=== PATIENT | male | born 1950 | race Caucasian/White ===

== ENCOUNTER 2020-06-08 12:59 | Outpatient (REF) | payer OTHER, SELFPAY ==
--- NOTE | ~2020-06-08 | CT_ITS ---
EXAMINATION: CT CHEST SCREENING CLINICAL INFORMATION: Nicotine dependence COMPARISON: Previous chest CT scans most recent April 2019 TECHNIQUE: Multidetector volumetric CT imaging of the chest is performed without contrast using low dose technique. Additional 2D coronal and sagittal reformatted images and axial 3D maximum intensity projection (MIP) images are generated on the CT workstation. This CT examination was performed using dose optimization techniques as appropriate, variously including the following: *Automated exposure control *Adjustment of mA and/or kV according to patient size (this includes techniques or standardized protocols for targeted exams where dose is matched to indication/reason for exam; i.e. extremities or head) *Use of iterative reconstruction technique DLP: 52 mGy-cm FINDINGS: LUNGS: There is evidence of mild paraseptal emphysema. There is mild biapical pleural parenchymal scarring. There is small pulmonary nodules that are stable. Largest pulmonary nodule is a 4 mm calcified right lower lobe nodule axial image 365 series 6. No new pulmonary nodule is seen. There is no endobronchial or endotracheal lesion.. MEDIASTINUM: There are small calcified mediastinal and right hilar lymph nodes that are stable. No enlarged lymph nodes are seen. The heart does not appear enlarged. There is a tiny pericardial effusion. There is mild coronary artery calcification. The ascending thoracic aorta is slightly dilated measuring 4.2 cm which is unchanged. PLEURA: There is no pleural effusion. No pleural mass or thickening. AXILLA: No lymphadenopathy. UPPER ABDOMEN: There are calcifications in the spleen. There is a 4 cm left renal cyst. OSSEOUS STRUCTURES: There are degenerative changes of the spine. CT/CT lung screening IMPRESSION: Mild emphysema. Evidence of old granulomatous disease. Coronary artery calcification. Slightly dilated ascending thoracic aorta. ASSESSMENT: Lung-RADS category 2: Benign RECOMMENDATION: Annual low-dose chest CT follow-up recommended.
== END 2020-06-08 13:00 | disposition home or self-care (01) ==
LOC: HO.CT 12:59
PROVIDERS: PCP Internal Medicine Geriatric Medicine; Visit Provider Physician Assistant Medical
DX: Z12.2 Encounter for screening for malignant neoplasm of respiratory organs (principal); F17.210 Nicotine dependence, cigarettes, uncomplicated
CPT/HCPCS: 71271

== ENCOUNTER 2020-07-09 10:33 | Outpatient (REF) | payer OTHER, SELFPAY ==
--- NOTE | ~2020-07-09 | XR_ITS ---
EXAMINATION: XR HAND, RIGHT CLINICAL INFORMATION: Chronic ulcer of skin COMPARISON: None TECHNIQUE: PA, lateral, and oblique views of the right hand. FINDINGS: Bone alignment is normal. No fracture or dislocation is seen. There is mild arthritis at the first SENIOR LIVING joint with joint space narrowing and osteophyte formation. Joint spaces are otherwise normal. Soft tissues are normal. No abnormal air collection or soft tissue foreign body is seen. XR/XR hand RT min 3V IMPRESSION: Mild arthritis at the first SENIOR LIVING joint. No x-ray evidence of osteomyelitis.
== END 2020-07-09 10:34 | disposition home or self-care (01) ==
LOC: HO.XRAY 10:33
PROVIDERS: PCP Internal Medicine Geriatric Medicine; Visit Provider Internal Medicine
DX: L98.492 Non-pressure chronic ulcer of skin of other sites with fat layer exposed (principal)
CPT/HCPCS: 73130

== ENCOUNTER 2020-08-10 12:50 | Outpatient (REF) | payer OTHER, SELFPAY ==
--- NOTE | ~2020-08-10 | CT_ITS ---
EXAMINATION: CT CHEST WITHOUT CONTRAST CLINICAL INFORMATION: Follow-up dilatation of the ascending thoracic aorta COMPARISON: Previous chest CT scans most recent May 2020 TECHNIQUE: Multidetector volumetric CT imaging of the chest was done. Axial MIP volume rendering provided. Sagittal and coronal reformatted images were obtained. This CT examination was performed using dose optimization techniques as appropriate, variously including the following: *Automated exposure control *Adjustment of mA and/or kV according to patient size (this includes techniques or standardized protocols for targeted exams where dose is matched to indication/reason for exam; i.e. extremities or head) *Use of iterative reconstruction technique DLP: 157 mGy-cm FINDINGS: LUNGS: There is evidence of mild paraseptal emphysema. There is biapical pleural and parenchymal scarring. There are small bilateral pulmonary nodules that are stable. The largest is a 4 mm calcified right lower lobe nodule axial image 367 series 5. MEDIASTINUM: The ascending thoracic aorta is slightly dilated measuring 4.2 cm. This is unchanged. Aortic arch is upper normal in size measuring 3.1 cm. Descending thoracic aorta is normal in caliber measuring 2.7 cm.. The heart does not appear enlarged. There is mild coronary artery calcification. There is a tiny pericardial effusion that is stable. There are calcified right subcarinal or hilar lymph nodes suggestive of old granulomatous disease. PLEURA: There is no pleural effusion. No pleural mass or thickening. AXILLA: No lymphadenopathy. UPPER ABDOMEN: There is a 4 cm cyst in the left kidney that is stable. There are calcifications in the spleen likely related to old granulomatous disease. OSSEOUS STRUCTURES: There are degenerative changes of the spine. CT/CT chest wo con IMPRESSION: Stable mild dilatation of the ascending thoracic aorta measuring 4.2 cm. Emphysema. Stable small pulmonary nodules. Evidence of old granulomatous disease. Mild coronary artery calcification.
== END 2020-08-10 12:51 | disposition home or self-care (01) ==
LOC: HO.CT 12:50
PROVIDERS: PCP Internal Medicine Geriatric Medicine; Visit Provider Internal Medicine Cardiovascular Disease
DX: I77.810 Thoracic aortic ectasia (principal)
CPT/HCPCS: 71250

== ENCOUNTER → 2021-01-12 10:39 | Outpatient (BNVA) | payer OTHER, SELFPAY | PROVIDERS: PCP Internal Medicine Geriatric Medicine; Referring Provider Internal Medicine Geriatric Medicine; Visit Provider Surgery | DX: L72.0 Epidermal cyst (principal) | CPT/HCPCS: 99202 ==

== ENCOUNTER 2021-02-02 07:53 | Outpatient (REF) | payer OTHER, SELFPAY ==
[2021-02-02 08:03] VITALS: BP 146/85; PULSE 71; RESP 16; TEMP 36.3; O2SAT 100; BMI 25.5
[2021-02-02 08:23] VITALS: BP 124/77; PULSE 66; RESP 16; O2SAT 99
--- NOTE | 2021-02-02 08:27 | P.OP_ITS ---
Operative Note Operative Note Date of Service: 02/02/21 Narrative: Preop diagnosis: Epidermal cyst, left neck Postop diagnosis: Epidermal cyst, left neck Procedure: Excision of epidermal cyst on the left neck under local anesthesia Surgeon: Agapito Lord MD Patient is a 70-year-old male with note of area of cystic induration on the left neck measuring about 1.5 cm, with recent swelling, and drainage. This seemed to be consistent with a ruptured epidermal cyst. He wanted to proceed with excision. He understood the technique of excision under local anesthesia and he was aware of the risks, benefits, and alternatives. He was brought to the minor procedure room. He was placed supine. His head was turned to the right to expose the cyst on the left neck. This area was prepped and draped. Lidocaine 1% was used for local anesthesia. I made an elliptical incision around the cystic induration using blade 15. This was carried down through the full-thickness of the skin and part of the subcutaneous layer to excise this entire indurated area. This induration was about 1.5 cm in diameter I closed the incision with full-thickness nylon 3-0 interrupted sutures. Dressings were applied. The patient tolerated procedure well. There were no complications. He was giv en wound care instructions. The patient will be seen in the office for removal of sutures in 2 weeks.
== END 2021-02-02 07:54 | disposition home or self-care (01) ==
LOC: HO.MS 07:53
PROVIDERS: PCP Internal Medicine Geriatric Medicine; Visit Provider Surgery
PROC: (CPT 11422; principal; 2021-02-02 08:00)
DX: L72.0 Epidermal cyst (principal); I10 Essential (primary) hypertension; Z79.899 Other long term (current) drug therapy; Z79.84 Long term (current) use of oral hypoglycemic drugs
CPT/HCPCS: 11422; 88304

== ENCOUNTER → 2021-02-14 12:49 | Outpatient (BNVA) | payer OTHER, SELFPAY | PROVIDERS: PCP Internal Medicine Geriatric Medicine; Referring Provider Internal Medicine Geriatric Medicine; Visit Provider Surgery | DX: Z48.817 Encounter for surgical aftercare following surgery on the skin and subcutaneous tissue (principal); Z87.2 Personal history of diseases of the skin and subcutaneous tissue | CPT/HCPCS: 99212 ==

== ENCOUNTER 2022-08-21 15:27 | Outpatient (REF) | payer OTHER, SELFPAY ==
--- NOTE | ~2022-08-21 | CT_ITS ---
EXAMINATION: CT CHEST SCREENING CLINICAL INFORMATION: 50 pack-year history. Quit 1 year ago. COMPARISON: Previous chest CT most recent July 2020 TECHNIQUE: Multidetector volumetric CT imaging of the chest is performed without contrast using low dose technique. Additional 2D coronal and sagittal reformatted images and axial 3D maximum intensity projection (MIP) images are generated on the CT workstation. This CT examination was performed using dose optimization techniques as appropriate, variously including the following: *Automated exposure control *Adjustment of mA and/or kV according to patient size (this includes techniques or standardized protocols for targeted exams where dose is matched to indication/reason for exam; i.e. extremities or head) *Use of iterative reconstruction technique DLP: 48 mGy-cm FINDINGS: LUNGS: Mild biapical pleural and parenchymal scarring. Small pulmonary nodules are stable. Largest is a 4 mm calcified right lower lobe nodule axial image 381 series 5. No new pulmonary nodule. No endobronchial or endotracheal lesion. Small tracheal diverticulum. Mild emphysema. MEDIASTINUM: Slightly dilated ascending thoracic aorta measuring 4.2 x 4.3 cm not appreciably changed. The aortic arch and descending thoracic aorta are upper normal in size. Small calcified mediastinal and right hilar lymph nodes. No enlarged lymph nodes. Normal heart size. Moderate to severe coronary artery calcification. Trace pericardial effusion. CORONARY ARTERY CALCIFICATION: Moderate to severe PLEURA: There is no pleural effusion. No pleural mass or thickening. AXILLA: No lymphadenopathy. UPPER ABDOMEN: Calcifications in the spleen suggestive of old granulomatous disease. Left renal cyst. OSSEOUS STRUCTURES: Degenerative changes. CT/CT lung screening IMPRESSION: Mild emphysema. Stable small pulmonary nodules. Evidence of old granulomatous disease. Slightly dilated ascending thoracic aorta not appreciably changed. Moderate to severe coronary artery calcification. ASSESSMENT: Lung-RADS category 2: Benign RECOMMENDATION: Annual low-dose chest CT follow-up recommended
== END 2022-08-21 15:28 | disposition home or self-care (01) ==
LOC: HO.CT 15:27
PROVIDERS: PCP Internal Medicine Geriatric Medicine; Visit Provider Physician Assistant Medical
DX: Z12.2 Encounter for screening for malignant neoplasm of respiratory organs (principal); Z87.891 Personal history of nicotine dependence
CPT/HCPCS: 71271

== ENCOUNTER 2023-02-20 09:11 | Outpatient (REF) | payer OTHER, SELFPAY | END 2023-02-20 09:12 | disposition home or self-care (01) | LOC: HO.HHCX 09:11 | PROVIDERS: Visit Provider Internal Medicine Geriatric Medicine | DX: Z13.89 Encounter for screening for other disorder (principal) | CPT/HCPCS: 73562 ==

== ENCOUNTER 2023-02-26 10:21 | Outpatient (REF) | payer OTHER, SELFPAY ==
--- NOTE | ~2023-02-26 | XR_ITS ---
EXAMINATION: XR KNEE, RIGHT CLINICAL INFORMATION: Pain. COMPARISON: Radiographs dated 10/03/2009. TECHNIQUE: AP, lateral, tunnel, and sunrise views of the right knee. FINDINGS: Bony alignment and mineralization are normal. There is very mild asymmetric narrowing of the medial joint space compartment. The lateral and patellofemoral joint space compartments are well-maintained. There is peripheral osteophyte formation of the patellofemoral compartment. There is chondrocalcinosis. No fracture, dislocation or right knee joint effusion is seen. An accessory ossification center is again seen of the patella. There are scattered atherosclerotic calcifications. XR/XR knee RT 4V IMPRESSION: 1. No right knee fracture, dislocation or joint effusion is seen. 2. There is mild osteoarthritic change of the medial and patellofemoral joint space compartments of the right knee. 3. There is chondrocalcinosis, which can be associated with CPPD. EXAMINATION: XR KNEE, LEFT CLINICAL INFORMATION: Pain. COMPARISON: Radiographs dated 04/02/2008. TECHNIQUE: AP, lateral, tunnel, and sunrise views of the left knee. FINDINGS: Bony alignment and mineralization are normal. The lateral, medial and patellofemoral joint space compartments are well-maintained. There is chondrocalcinosis. No fracture, dislocation or significant left knee joint effusion is seen. There is no foreign body. There are scattered atherosclerotic calcifications. IMPRESSION: 1. No left knee fracture, dislocation or joint effusion is seen. 2. There is chondrocalcinosis, which can be associated with CPPD.
--- NOTE | ~2023-02-26 | XR_ITS ---
EXAMINATION: XR KNEE, RIGHT CLINICAL INFORMATION: Pain. COMPARISON: Radiographs dated 10/03/2009. TECHNIQUE: AP, lateral, tunnel, and sunrise views of the right knee. FINDINGS: Bony alignment and mineralization are normal. There is very mild asymmetric narrowing of the medial joint space compartment. The lateral and patellofemoral joint space compartments are well-maintained. There is peripheral osteophyte formation of the patellofemoral compartment. There is chondrocalcinosis. No fracture, dislocation or right knee joint effusion is seen. An accessory ossification center is again seen of the patella. There are scattered atherosclerotic calcifications. XR/XR knee LT 4V IMPRESSION: 1. No right knee fracture, dislocation or joint effusion is seen. 2. There is mild osteoarthritic change of the medial and patellofemoral joint space compartments of the right knee. 3. There is chondrocalcinosis, which can be associated with CPPD. EXAMINATION: XR KNEE, LEFT CLINICAL INFORMATION: Pain. COMPARISON: Radiographs dated 04/02/2008. TECHNIQUE: AP, lateral, tunnel, and sunrise views of the left knee. FINDINGS: Bony alignment and mineralization are normal. The lateral, medial and patellofemoral joint space compartments are well-maintained. There is chondrocalcinosis. No fracture, dislocation or significant left knee joint effusion is seen. There is no foreign body. There are scattered atherosclerotic calcifications. IMPRESSION: 1. No left knee fracture, dislocation or joint effusion is seen. 2. There is chondrocalcinosis, which can be associated with CPPD.
== END 2023-02-26 10:22 | disposition home or self-care (01) ==
LOC: HO.XRAY 10:21
PROVIDERS: PCP Internal Medicine Geriatric Medicine; Visit Provider Internal Medicine Geriatric Medicine
DX: M25.561 Pain in right knee (principal); M25.562 Pain in left knee; E11.9 Type 2 diabetes mellitus without complications
CPT/HCPCS: 73564

== ENCOUNTER 2023-11-20 09:30 | Outpatient (REF) | payer OTHER, SELFPAY ==
[2023-11-20 11:19] LABS: MANUAL DIFF FLAG NO
[2023-11-20 11:25] LABS: Basophils Percent Auto 0.5 % (0-2); Eosinophils Absolute Auto 0.1 X10*3/uL (0.0-0.4); Hematocrit 43.9 % (42.0-52.0); Hemoglobin 14.5 g/dl (14.0-18.0); Imm Gran Abs Auto 0.02 X10*3/uL (0.00-0.03); Imm Gran Pct Auto 0.3 % (0.0-0.4); Lymphocytes Absolute Auto 1.8 X10*3/uL (1.2-4.9); Lymphocytes Percent Auto 30.5 % (20-40); Mean Corpuscular Hemoglobin 29.5 pg (27.0-33.0); Mean Corpuscular Volume 89.2 fL (80.0-98.0); Mean Platelet Volume 10.1 fL (9.4-12.4); Monocytes Absolute Auto 0.6 X10*3/uL (0.1-1.2); Monocytes Percent Auto 10.8 % (2-11); Neutrophils Absolute Auto 3.4 x10*3/uL (2.0-8.3); Neutrophils Percent Auto 56.9 % (45-73); Platelet Count 222 X10*3/uL (160-400); Red Blood Count 4.92 X10*6/uL (4.60-5.80); Red Cell Distribution Width 14.2 % (11.0-16.0); White Blood Count 5.9 X10*3/uL (4.8-10.8)
[2023-11-20 11:50] LABS: Alanine Aminotransferase 40 U/L (0-40); Albumin Level 4.2 g/dL (3.5-5.0); Alkaline Phosphatase 56 U/L (39-117); Anion Gap 14 (12-20); Aspartate Amino Transferase 40 U/L (5-37); Blood Urea Nitrogen 11 mg/dL (9-16); Calcium 9.8 mg/dL (8.4-10.2); Carbon Dioxide 25 mmol/L (22-29); Chloride 105 mmol/L (96-108); Cholesterol 172 mg/dL (<200); Estimated Glomerular Filt Rate 59; Glucose Random 111 mg/dL (60-115); HDL Cholesterol 66 mg/dL (>40); LDL Cholesterol Calculated 67 mg/dL (<100); Potassium 4.1 mmol/L (3.3-5.1); Sodium 140 mmol/L (135-145); Total Protein 7.5 g/dL (6.5-8.0); Triglycerides 196 mg/dL (<150)
[2023-11-20 11:59] LABS: Creatinine Urine 125.08 mg/dL; Microalbum/Creatinine Ratio Ur 14.3 ug/mg cr (<30)
== END 2023-11-20 09:31 | disposition home or self-care (01) ==
LOC: HO.HHCL 09:30
PROVIDERS: Visit Provider Internal Medicine Geriatric Medicine
DX: E11.9 Type 2 diabetes mellitus without complications (principal); I51.89 Other ill-defined heart diseases; Z87.891 Personal history of nicotine dependence
CPT/HCPCS: 36415; 80053; 80061; 82043; 82570; 85025

== ENCOUNTER 2024-01-23 08:34 | Outpatient (REF) | payer OTHER, SELFPAY ==
--- NOTE | ~2024-01-23 | CT_ITS ---
EXAMINATION: CT LOW-DOSE SCREENING CHEST WITHOUT CONTRAST CLINICAL INFORMATION: Nicotine dependence, cigarettes, uncomplicated. Former smoker. The patient has a 50 pack-year history of smoking, having quit 2 years ago. COMPARISON: CT chest August 21, 2022. XRT chest May 23, 2014. TECHNIQUE: Multidetector volumetric CT imaging of the chest is performed on a Siemens SOMATOM Definition scanner without contrast using low dose technique. Additional 2D coronal and sagittal reformatted images and axial 3D maximum intensity projection (MIP) images are generated on the CT workstation. This CT examination was performed using dose optimization techniques as appropriate, variously including the following: *Automated exposure control *Adjustment of mA and/or kV according to patient size (this includes techniques or standardized protocols for targeted exams where dose is matched to indication/reason for exam; i.e. extremities or head) *Use of iterative reconstruction technique TOTAL EXAM DLP: 50 mGy-cm. CTDIvol: 1.40 mGy. FINDINGS: PULMONARY NODULES: Some small stable pulmonary nodules are present, the largest a calcified perifissural node in the right lower lobe. LUNGS: Lungs bilaterally symmetrically expanded. Mild emphysema and bronchial thickening present without bronchiectasis. A small tracheal diverticulum is unchanged. No effusion or pneumothorax. Central airways patent. MEDIASTINUM: No mediastinal, hilar or axillary adenopathy or free fluid collection. There are small calcified subcarinal and right hilar lymph nodes. CORONARY ARTERY CALCIFICATION: Present. THYROID GLAND: Unremarkable to the extent seen. CARDIOVASCULAR STRUCTURES: Ascending aorta is unchanged at 4.3 cm maximal transverse dimension in the axial plane. Heart size is normal. Trace anterior pericardial fluid, unchanged. CHEST WALL/AXILLA: Unremarkable. UPPER ABDOMEN: Calcified splenic granulomas are present. There is hepatic steatosis. Included portions of the solid organs in the upper abdomen otherwise unremarkable on noncontrast imaging. OSSEOUS STRUCTURES: No suspicious focal findings. CT/CT lung screening IMPRESSION: No findings seen suspicious for malignancy. ASSESSMENT: 1. Lung-RADS Category 2: Benign appearance or behavior of nodules. N/A 2. Lung-RADS Category S: Negative. There are no clinically significant or potentially clinically significant findings not related to the lungs requiring urgent additional evaluation. RECOMMENDATION: Continued routine annual low-dose CT lung screening in 1 year is recommended. An order for CT CHEST LOW DOSE CANCER SCREENING ([id number]) can be placed. Electronically signed by: Yariel Farmer MD 03/07/2024 08:12 PM RANDI
== END 2024-01-23 08:35 | disposition home or self-care (01) ==
LOC: HO.CT 08:34
PROVIDERS: PCP Internal Medicine Geriatric Medicine; Visit Provider Physician Assistant Medical
DX: Z12.2 Encounter for screening for malignant neoplasm of respiratory organs (principal); F17.210 Nicotine dependence, cigarettes, uncomplicated
CPT/HCPCS: 71271

== ENCOUNTER 2024-08-22 08:33 | Outpatient (REF) | payer OTHER, SELFPAY ==
--- OUTSIDE RECORDS SUMMARY | 2024-08-22 08:47 | XMS_ITS | Clinical Summary ---
Author Organization [facility], Address [address] [place] [address] [place] [address] Phone Care Team Providers Care Cupola Patcher Name Role Phone Name, Galo RIVAS Primary Care Provider [phone] Allergies No known active allergies Medications atorvastatin (LIPITOR) 80 MG tablet Take 80 mg by mouth 1 (one) time each day Active [place]-3 Fatty Acids ([place]-3 Fish Oil) 1000 MG capsule Take 1,000 mg by mouth 1 (one) time each day Active aspirin (ST GERARDO) 81 MG EC tablet Take 81 mg by mouth 1 (one) time each day Active metoprolol succinate XL (TOPROL-XL) 25 MG 24 hr tablet Take 12.5 mg by mouth 1 (one) time each day Do not crush or chew. Active metFORMIN (GLUCOPHAGE) 500 MG tablet Take 250 mg by mouth 2 (two) times a day with meals Active nitroglycerin (NITROSTAT) 0.[address] 0.4 mg under the tongue every 5 (five) minutes if needed for chest pain Active ergocalciferol 1.25 MG (98118 UT) capsule Take 50,000 Units by mouth 1 (one) time per week Active sacubitril-vals sharon (Entresto) 24-26 MG per tablet Take 1 tablet by mouth 2 (two) times a day Active Active Problems Problem Noted Date Diagnosed Date Type 2 diabetes mellitus without complication Heart failure, not otherwise specified 2 Renal disorder due to type 2 diabetes mellitus 0 09/06/2020 Stage 3a chronic kidney disease 08/21/2019 Overview (04/19/2020): Update for Diagnosis Load Essential hypertension 08/21/2019 Resolved Problems Problem Noted Date Diagnosed Date Resolved Date Anemia 08/21/2019 09/06/2020 Family History Relation Status Comments Father Unknown Mother Unknown Social History Tobacco Use Types Packs/Day Years Used Date Smoking Tobacco: Every Day Cigarettes Tobacco Cessation:Ready to Q uit: Not Asked; Counseling Given: Not Answered Alcohol Use Standard Drinks/Week Comments Yes 0 (1 standard drink = 0.6 oz pure alcohol) Alcoholic Drinks/day: Occasional social drink Sex and Gender Information Value Date Recorded Sex Assigned at Not on file Legal Sex Male 4:37 PM EST Gender Identity Not on file Sexual Orientation Not on file Last Filed Vital Signs Vital Sign Reading Time Taken Comments Blood Pressure 122/68 03/06/2022 5:09 PM EST Pulse - - Temperature - - Respiratory Rate - - Oxygen Saturation - - Inhaled Oxygen Concentration - - Weight 76.9 kg (169 lb 9.6 oz) 03/06/2022 5:09 P M EST Height 170.2 cm (5' 7 ) 03/06/2022 5:09 PM EST Body Mass Index 26.56 03/06/2022 5:09 PM EST Plan of Treatment Health Maintenance Due Date Last Done Comments Pneumococcal Vaccine: 50+ Ye ars (1 of 2 - PCV) 10/31/1971 Colorectal Cancer Screening: Annual FOBT 2001 Colorectal Cancer Screening: Colonoscopy 2001 Colorectal Cancer Screening: Sigmoidoscopy 2001 Diabetes: Ophthalmology Exam 09/06/2020 Diabetes: Pedal Pulse Checked 09/06/2020 Diabetes: Sensory Foot Exam 09/06/2020 Diabetes: Visual Foot Exam 09/06/2020 Diabetes: Hemoglobin A1C 12/07/2020 09/06/2020 Influenza Vaccine (Season Ended) 2024 Hepatitis B Vaccine Aged Out No longe r eligible based on patient's age to complete this topic Procedures Procedure Name Priority Date/Time Associated Diagnosis Comments HEMOGLOBIN A1C Routine 09/06/2020 3:11 PM EDT Stage 3a chronic kidney disease (HCC) from Last 3 Months or Most Recently Relevant to Health Maintenance Results * (ABNORMAL) Hemoglobin A1c (09/06/2020 3:11 PM EDT) Hemoglobin A1C 6.7(H) (4.0-5.6) % [facility] Comment: MONITORING: In known diabetic patients, hemoglobin A1c targets should be discussed with health care provider. DIAGNOSTIC USE: ??The [place] Diabetes Association (ADA) and the World Health Organization (WHO) recommend the use of HbA1c to diagnose diabetes using a threshold of 6.5%. Patients who have an HbA1c between 5.7% and 6.4% are considered at increased risk for developing diabetes in the future. CAUTION: Falsely low HbA1c results may be observed in patients with hemolytic anemia, homozygous forms of abnormal hemoglobin (e.g. SS, CC, SC), , recent blood loss or hemoglobin F greater than 7%. Fructosamine may be used as an alternate test in these cases. REFERENCE: ADA: Standards of Medical Care in Diabetes 2020, The Journal of Clinical and Applied Research and Education Volume 43, Supplement 1 Testing performed or reported by [facility], a Service of [facility], [address] [place] [id number] Daron Kilpatrick MD, [employer] Superintendent Blood (Blood, Venous) 09/06/2020 3:11 PM EDT 09/06/2020 3:13 PM EDT us Ld Martin MD LAB BLOOD ORDERABLES Final Resul t [facility] from Last 3 Months or Most Recently Relevant to Health Maintenance Insurance [facility] Care Teams Cupola Patcher Relationship Specialty Start Date End Date Name, MD Galo [address] [place] [id number] PCP - General Internal Medicine 03/03/20
--- OUTSIDE RECORDS SUMMARY | 2024-08-22 08:47 | XMS_ITS | Encounter Summary ---
Author Organization [facility], Address [address] [place] [address] Phone Care Team Providers Care Setter Machine Name Role Phone Name, Galo RIVAS Primary Care Provider [phone] Encounter Details Date Type Department Care Team (Late st Contact Info) Description 10/10/2021 Documentation Only [facility], [address] [place] [address] Ld Martin MD [address] [place] [address] Social History Tobacco Use Types Packs/Day Years Used Date Smoking Tobacco: Every Day Cigarettes Alcohol Use Standard Drinks/Week Comments Yes 0 (1 standard drink = 0.6 oz pure alcohol) Alcoholic Drinks/day: Occasional social drink Sex and Gender Information Value Date Recorded Sex Assigned at Not on file Legal Sex Male 4:37 PM EST Gender Identity Not on file Sexual Orientation Not on file documented as of this encounter Plan of Treatment Not on file documented as of this encounter Visit Diagnoses Not on filedocumented in this encounter Care Teams Setter Machine Relationship Specialty Start Date End Date Name, MD [address] [place] [address] PCP - General Internal Medicine 03/03/20 documented as of this encounter
--- OUTSIDE RECORDS SUMMARY | 2024-08-22 08:47 | XMS_ITS | Encounter Summary ---
Author Organization [facility] Address [address] [place] [address] Phone Care Team Providers Care Social Media Director Name Role Phone Name, Galo RIVAS Primary Care Provider [phone] Encounter Details Date Type Department Care Team (Late st Contact Info) Description 01/26/2022 Documentation Only [facility], [address] [place] [address] Gema Arriaga PA Social History Tobacco Use Types Packs/Day Years [...] on filedocumented in this encounter Care Teams Social Media Director Relationship Specialty Start Date End Date Name, MD Galo [address] [place] [id number] PCP - General Internal Medicine 03/03/20 documented as of this encounter
--- OUTSIDE RECORDS SUMMARY | 2024-08-22 08:47 | XMS_ITS | Encounter Summary ---
Author Organization [facility] Address [address] [place] [address] Phone Care Team Providers Care Administrative Specialist Name Role Phone Name, Galo RIVAS Primary Care Provider [phone] Encounter Details Date Type Department Care Team (Late st Contact Info) Description 02/28/2022 Documentation Only [facility], [address] [place] [address] Gema Arriaga PA Social History [...] on filedocumented in this encounter Care Teams Administrative Specialist Relationship Specialty Start Date End Date Name, MD Galo [address] [place] [phone] PCP - General Internal Medicine 03/03/20 documented as of this encounter
--- OUTSIDE RECORDS SUMMARY | 2024-08-22 08:47 | XMS_ITS | Encounter Summary ---
Author Organization [facility] Address [address] [place] [address] Phone Care Team Providers Care Dump Attendant Name Role Phone Name, Galo RIVAS Primary Care Provider [phone] Encounter Details Date Type Department Care Team (Late st Contact Info) Description 01/26/2022 Documentation Only [facility], [address] [place] [address] Gema Arriaga PA Social History [...] on filedocumented in this encounter Care Teams Dump Attendant Relationship Specialty Start Date End Date Name, MD Galo [address] [place] [id number] PCP - General Internal Medicine 03/03/20 documented as of this encounter
--- OUTSIDE RECORDS SUMMARY | 2024-08-22 08:47 | XMS_ITS | Encounter Summary ---
Author Organization [employer] Address [address] [facility] 7t [place] [address] Care Team Providers Care Auctioneer Tobacco Name Role Phone Name, Galo RIVAS Primary Care Provider [phone] Encounter Details Date Type Department Care Team (Late st Contact Info) Description 12/05/2022 [facility] [employer] [address] [place], [place] [phone] Name, MD Galo [address] [place], [place] [phone] Social History Tobacco Use Types Packs/Day Years Used Date Smoking Tobacco: Never Smokeless Tobacco: Never Alcohol Use Standard Drinks/Week Comments Yes 14 (1 standard drink = 0.6 oz pu re alcohol) Depression Answer Date Recorded Patient Health Questionnaire-2 Score 0 07/24/2022 Sex and Gender Information Value Date Recorded Sex Assigned at Male 02/13/2022 10:16 AM EDT Legal Sex Male 10:16 AM EDT Gender Identity Male 02/13/2022 10:16 AM EDT Sexual Orientation Straight 02/13/2022 10 :16 AM EDT documented as of this encounter Plan of Treatment Not on file documented as of this encounter Visit Diagnoses Not on filedocumented in this encounter Care Teams Auctioneer Tobacco Relationship Specialty Start Date End Date Name, MD Galo [address] [place], [place] [phone] PCP - General Family Medicine 07/14/15 documented as of this encounter
--- OUTSIDE RECORDS SUMMARY | 2024-08-22 08:47 | XMS_ITS | Encounter Summary ---
Author Organization [facility], Address [address] [place] [address] Phone Care Team Providers Care National Secretary Name Role Phone Name, Galo RIVAS Primary Care Provider [phone] Encounter Details Date Type Department Care Team (Late st Contact Info) Description 01/25/2022 Documentation Only [facility], [address] [place] [address] Ld Martin MD [address] [place] [address] Social History Tobacco Use Types [...] on filedocumented in this encounter Care Teams National Secretary Relationship Specialty Start Date End Date Name, MD Galo [address] [place] [address] PCP - General Internal Medicine 03/03/20 documented as of this encounter
--- OUTSIDE RECORDS SUMMARY | 2024-08-22 08:47 | XMS_ITS | Encounter Summary ---
Author Organization [employer] Address [address] [facility] [address]t [place] [address] Care Team Providers Care Payroll Clerk Name Role Phone Name, Galo RIVAS Primary Care Provider Reason for Visit * Reason Onset Date Comments Chart Prep 08/18/2024 Encounter Details Date Type Department Care Team (Late st Contact Info) Description 08/18/2024 Telephone [facility] [address] [place], [place] [phone] Allie Pina MA Chart Prep Social History Tobacco Use Types Packs/Day Years Used Date Smoking Tobacco: Former Cigarettes Smokeless Tobacco: Never Alcohol Use Standard Drinks/Week Comments Yes 30 (1 standard drink = 0.6 oz pu re alcohol) Alcohol Answer Date Recorded Frequency of Alcohol Consumption Not on file 12/04/2023 Average Number of Drinks Not on file 024 Frequency of Binge Drinking Not on file 11/15 Score 0 12/04/2023 Depression Answer Date Recorded Patient Health Questionnaire-9 Score 3 08/19/2024 Patient Health Questionnaire-9 Score 3 08/19/2024 Last PHQ-9: Questionnaire Data Not on file 0 08/19/2024 Housing Stability Answer Date Recorded What is your housing situation today? I have alisson reynolds 12/04/[address] you li ve. Do you have problems with any of the following? None of the above 12/04/2023 Food Insecurity Answer Date Recorded Within the past 12 months, y ou worried that your food would run out before you got money to buy more: Never True 12/04/2023 Within the past 12 months,th e food you bought just didn't last and you didn't have enough money to get more: Never True Transportation Answer Date Recorded In the past 12 months, has l ack of transportation kept you from medical appts, meetings, work or from getting things needed for daily living? No 12/04/2023 Utilities Answer Date Recorded In the past 12 months, has t he electric, gas, oil or water company threatened to shut off services in your home? No 12/04/2023 Depression Answer Date Recorded Patient Health Questionnaire-2 Score 1 08/19/2024 Internet Access Answer Date Recorded Internet Access Q1 No 12/17/2023 Internet Access Q2 I do not want or need it 05/2023 Sex and Gender Information Value Date Recorded Sex Assigned at Male 02/13/2022 10:16 AM EDT Legal Sex Male 10:16 AM EDT Gender Identity Male 02/13/2022 10:16 AM EDT Sexual Orientation Straight 02/13/2022 10 :16 AM EDT documented as of this encounter Miscellaneous Notes * Telephone Encounter - Allie Pina MA - 08/18/2024 10:09 AM EDT Chart Prep Labs: done Images: not applicable Referrals: not applicable Vaccines due: Covid, Flu, and Zoster Screenings: eye exam and foot exam Overdue care gaps: Glucose, PHQ-9, KISHOR-7, and Tobacco documented in this encounter Plan of Treatment Not on file documented as of this encounter Visit Diagnoses Not on filedocumented in this encounter Additional Health Concerns Assessment Noted Time PHQ-9 Depression Total Score: 0 08/24/19 24 9:06 AM EDT documented as of this encounter Care Teams Payroll Clerk Relationship Specialty Start Date End Date Name, MD Galo [address] [place] [address] PCP - General Family Medicine 07/14/15 documented as of this encounter
--- OUTSIDE RECORDS SUMMARY | 2024-08-22 08:47 | XMS_ITS | Encounter Summary ---
Author Organization [employer] Address [address] [facility] 7t [place] [address] Care Team Providers Care Press Cleaner Name Role Phone Name, Galo RIVAS Primary Care Provider Encounter Details Date Type Department Care Team (Latest Contact Info) Description 08/19/2024 Travel Social History Tobacco Use Types Packs/Day Years [...] Assessment Noted Time PHQ-9 Depression Total Score: 3 08/20/19 25 11:13 AM EDT documented as of this encounter Care Teams Press Cleaner Relationship Specialty Start Date End Date Name, MD Galo [address] [place] [id number] PCP - General Family Medicine 07/14/15 documented as of this encounter
--- OUTSIDE RECORDS SUMMARY | 2024-08-22 08:47 | XMS_ITS | Encounter Summary ---
Author Organization [employer] Address [address] [address] Care Team Providers Care Flatcar Whacker Name Role Phone Name, Galo RIVAS Primary Care Provider [phone] Reason for Visit * Reason Onset Date Comments Results 10/12/2022 Encounter Details Date Type Department Care Team (Late st Contact Info) Description 10/12/2022 Telephone [facility] [address] [place], [place] [phone] Name, MD Galo [address] [place] [address] Results Social History Tobacco Use Types Packs/Day Years Used Date Smoking Tobacco: Never Smokeless Tobacco: Never Depression Answer Date Recorded Patient Health Questionnaire-2 Score 0 07/24/2022 Sex and Gender Information Value Date Recorded Sex Assigned at Male 02/13/2022 10:16 AM EDT Legal Sex Male 10:16 AM EDT Gender Identity Male 02/13/2022 10:16 AM EDT Sexual Orientation Straight 02/13/2022 10 :16 AM EDT documented as of this encounter Miscellaneous Notes * Telephone Encounter - Daya Omer RN - 10/18/2022 10:23 AM EDT T/C to [phone] for below message. Neelam states, she is all set. * Telephone Encounter - Anne Etienne - 10/12/2022 2:14 PM EDT Tc from neelam with [facility] requesting a call in regards to results for BUN creatinine. Also requesting results to be faxed. Fax 1: [phone] Fax 2: [phone] Please contact shailesh herndon at [phone] documented in this encounter Plan of Treatment Not on file documented as of this encounter Visit Diagnoses Not on filedocumented in this encounter Care Teams Flatcar Whacker Relationship Specialty Start Date End Date Name, MD Galo [address] [place] [address] PCP - General Family Medicine 07/14/15 documented as of this encounter
--- OUTSIDE RECORDS SUMMARY | 2024-08-22 08:47 | XMS_ITS | Encounter Summary ---
Author Organization [employer] Address [address] [facility] 7t [place] [address] Care Team Providers Care Supervisor Sign Shop Name Role Phone Name, Galo RIVAS Primary Care Provider [phone] Encounter Details Date Type Department Care Team (Late st Contact Info) Description 09/25/2022 Abstract [facility] [address] [place] [address] Name, MD Galo [address] [place] [address] Social History Tobacco Use Types Packs/Day Years [...] on file documented as of this encounter Procedures Procedure Name Priority Date/Time Associated Diagnosis Comments HM COLONOSCOPY Routine 06/27/2017 12:10 PM EDT documented in this encounter Results * Hm Colonoscopy (06/27/2017 12:10 PM EDT) Colonoscopy Normal Normal Narrative Katelyn Ely - 06/27/2017 12:10 PM EDT Recommended 10 years follow up Historical Provider HEALTH MAINTENANCE Final Result documented in this encounter Visit Diagnoses Not on filedocumented in this encounter Care Teams Supervisor Sign Shop Relationship Specialty Start Date End Date Name, MD Galo [address] [place] [address] PCP - General Family Medicine 07/14/15 documented as of this encounter
--- OUTSIDE RECORDS SUMMARY | 2024-08-22 08:47 | XMS_ITS | Encounter Summary ---
Author Organization [employer] Address [address] [facility] [address]t [place] [address] Care Team Providers Care Middle School Professional Name Role Phone Name, Galo RIVAS Primary Care Provider [phone] Reason for Visit * Reason Comments Med Refill Encounter Details Date Type Department Care Team ([facility] st Contact Info) Description 01/24/2023 Refill [facility] [address] [place], [place] [phone] Name, MD Galo [address] [place] [address] Tobacco use Social History Tobacco Use Types Packs/Day Years Used Date Smoking Tobacco: Never Smokeless Tobacco: Never Alcohol Use Standard Drinks/Week Comments Yes 14 (1 standard drink = 0.6 oz pu re alcohol) Housing Stability Answer Date Recorded What is your housing situation today? I have alisson reynolds 01/23/[address] you li ve. Do you have problems with any of the following? None of the above 01/23/2023 Food Insecurity Answer Date Recorded Within the past 12 months, y ou worried that your food would run out before you got money to buy more: Never True 01/23/2023 Within the past 12 months,th e food you bought just didn't last and you didn't have enough money to get more: Never True 01/2023 Transportation Answer Date Recorded In the past 12 months, has l ack of transportation kept you from medical appts, meetings, work or from getting things needed for daily living? No 01/23/2023 Utilities Answer Date Recorded In the past 12 months, has t he electric, gas, oil or water company threatened to shut off services in your home? No 01/23/2023 Depression Answer Date Recorded Patient Health Questionnaire-2 [...] documented as of this encounter Visit Diagnoses Diagnosis Tobacco use documented in this encounter Care Teams Middle School Professional Relationship Specialty Start Date End Date Name, MD Galo [address] [place] [address] PCP - General Family Medicine 07/14/15 documented as of this encounter
--- OUTSIDE RECORDS SUMMARY | 2024-08-22 08:47 | XMS_ITS | Encounter Summary ---
Author Organization [facility] Address [address] [place] [address] Phone Care Team Providers Care Ornamental Plaster Sticker Name Role Phone Name, Galo RIVAS Primary Care Provider [phone] Encounter Details Date Type Department Care Team (Late st Contact Info) Description 01/26/2022 Documentation Only [facility], [address] [place] [address] [...] on filedocumented in this encounter Care Teams Ornamental Plaster Sticker Relationship Specialty Start Date End Date Name, MD Galo [address] [place] [id number] PCP - General Internal Medicine 03/03/20 documented as of this encounter
--- OUTSIDE RECORDS SUMMARY | 2024-08-22 08:47 | XMS_ITS | Clinical Summary ---
Author Organization [employer] Address [address] [facility] [address] [place] [address] Care Team Providers Care Dock Associate Name Role Phone Name, Galo RIVAS Primary Care Provider Allergies No known active allergies Medications Entresto 24-26 MG tablet Take 1 tablet by mouth in the morning. 06/12/19 23 Active Diclofenac Sodium 1 % gel APPLY 2 GRAMS TOPICALLY TO KNEES TWICE DAILY 100 g 05/09/19 24 Active metFORMIN (Glucophage) 500 MG tablet TAKE 1/2 TABLET BY MOUTH TWICE DAILY IN THE MORNING AND IN THE EVENING WITH MEALS 180 tablet 1 08/08/19 24 Active nicotine (Nicoderm CQ) 14 MG/24HR patch Place 1 patch on the skin 1 (one) time each day at the same time. 30 patch 4 08/24/19 24 Active atorvastatin (Lipitor) 80 MG tablet TAKE 1 TABLET BY MOUTH EVERY DAY 90 tablet 3 10/30/19 24 Active Aspirin Adult Low Strength 81 MG EC tablet TAKE 1 TABLET BY MOUTH EVERY DAY 90 tablet 3 10/30/19 24 Active metoprolol succinate XL (Toprol-XL) 25 MG 24 hr tablet TAKE 1/2 TABLET BY MOUTH EVERY DAY 45 tablet 3 10/30/19 24 Active Jardiance 10 MG TAKE 1 TABLET BY MOUTH EVERY MORNING 30 tablet 11 12/03/19 24 Active clindamycin (Cleocin T) 1 % lotion APPLY TOPICALLY TO THE AFFECTED AREA(S) TWICE DAILY DIRECTED 60 mL 2 12/26/19 24 Active TRUEplus Lancets 33G miscIndications :Controlled diabetes mellitus type 2 with complications, unspecified whether assistant terminal manager insulin use (CMS/HCC) USE DIRECTED TO TEST BLOOD SUGAR EVERY DAY 100 each 3 06/04/19 25 Active Multiple Vitamin (Multivitamin) tabletIndicatio ns:Controlled diabetes mellitus type 2 with complications, unspecified whether assistant terminal manager insulin use (CMS/[facility]) TAKE 1 TABLET BY MOUTH EVERY DAY WITH FOOD 90 tablet 08/06/19 25 Active nitroglycerin (Nitrostat) 0.4 MG SL tabletIndicatio ns:Coronary artery disease involving [place] coronary artery of [place] heart, unspecified whether angina present DISSOLVE 1 TABLET UNDER THE TONGUE EVERY 5 MINUTES NEEDED FOR CHEST PAIN. CALL 911 IF NO RELIEF 25 tablet 2 08/09/19 25 Active FREESTYLE LITE test stripIndication s:Type 2 diabetes mellitus without complication, without long-term current use of insulin ([facility]) USE DIRECTED TO TEST BLOOD SUGAR EVERY DAY 50 strip 3 08/15/19 25 Active mometasone (Elocon) 0.1 % ointment Apply topically Once per day. 45 g 2 08/20/19 25 026 Active glucose blood (FREESTYLE LITE) test strip Use 1 by To Skin route every day 02/09/20 21 025 Discontinued nitroglycerin (Nitrostat) 0.4 MG SL tabletIndicatio ns:Coronary artery disease involving [place] coronary artery of [place] heart, unspecified whether angina present DISSOLVE 1 TABLET UNDER THE TONGUE EVERY 5 MINUTES NEEDED FOR CHEST PAIN. CALL 911 IF NO RELIEF 25 tablet 2 08/13/19 24 025 Discontinued Multiple Vitamin (Multivitamin) tabletIndicatio ns:Controlled diabetes mellitus type 2 with complications, unspecified whether intermediate insulin use ([facility]) TAKE 1 TABLET BY MOUTH EVERY DAY WITH FOOD 90 tablet 04/23/19 25 025 Discontinued(Re order (will not trigger notification to Pharmacy)) FREESTYLE LITE test stripIndication s:Type 2 diabetes mellitus without complication, without long-term current use of insulin ([facility]) USE DIRECTED TO TEST BLOOD SUGAR EVERY DAY 50 strip 1 05/01/19 25 025 Discontinued Active Problems Problem Noted Date Diagnosed Date Ischemic cardiomyopathy 08/19/2024 Ascending aorta dilatation 08/19/2024 Osteoarthritis of both knees 04/15/2024 Encounter for screening colonoscopy 02/19/2023 02/19/2023 Chronic ulcer of skin 07/24/2022 Coronary artery disease invo lving [place] coronary artery of [place] heart without angina pectoris 07/24/2022 Hand eczema 07/24/2022 History of myocardial infarction 07/24/2022 Mass of pancreas 07/24/2022 Overview (02/19/2023): [place] [facility] [place] 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 09/06/2020 Chronic low back pain 11/26/2017 History of prostatectomy 11/26/2017 Alcohol problem drinking 09/28/2017 CKD (chronic kidney disease) stage 3, GFR 30-59 ml/min 04/11/2017 Overview (07/24/2022): Update for Diagnosis Load Abdominal aortic aneurysm 03/22/2016 Chronic obstructive lung disease 03/22/2016 Essential hypertension 10/27/2015 Backache 09/27/2011 Tobacco dependence syndrome 09/27/2011 Scrotal varices 09/27/2011 Pain in joint involving lower leg 09/27/2011 Impotence of organic origin 09/27/2011 Vitamin D deficiency 09/27/2011 Resolved Problems Problem Noted Date Diagnosed Date Resolved Date Lung mass 07/28/2015 02/19/2023 Arthropathy 09/27/2011 08/24/2023 Encounters Date Type Department Care Team Description 08/19/2024 11:15 AM EDT Office Visit [facility] [address] [place] [address] [phone] Name, MD Galo Type 2 diabetes mellitus without complication, without long-term current use of insulin ([facility]) (Primary Dx); Stage 3a chronic kidney disease (CMS/[facility]); Coronary artery disease involving [place] coronary artery of [place] heart without angina pectoris; Ischemic cardiomyopathy; Ascending aorta dilatation ([facility]) 08/19/2024 Travel 08/18/2024 Telephone [facility] [address] [place] [address] Allie Pina MA Chart Prep 08/14/2024 Refill [facility] [address] [place] [address] Shannan Agee MD Type 2 diabetes mellitus without complication, without long-term current use of insulin ([facility]) 08/08/2024 Refill [facility] [address] [place] [address] Galo Stacy MD Coronary artery disease involving [place] coronary artery of [place] heart, unspecified whether angina present 08/05/2024 Refill [facility] [address] [place], [place] [phone] Galo Stacy MD Controlled diabetes mellitus type 2 with complications, unspecified whether assistant terminal manager insulin use ([facility]) 06/04/2024 Refill [facility] [address] [place] [address] Galo Stacy MD Controlled diabetes mellitus type 2 with complications, unspecified whether intermediate insulin use ([facility]) from Last 3 Months Immunizations Name Administration Dates Next Due Pneumococcal Conjugate PCV 13 07/05/2021 Pneumococcal Polysaccharide PPSV23 03/22/2016 Tdap 01/06/2016 Zoster, Recombinant 09/27/2021,07/25/2021 Social History Tobacco Use Types Packs/Day Years Used Date Smoking Tobacco: Former Cigarettes Smokeless Tobacco: Never Tobacco Cessation:Counseling Given: Not Answered Alcohol Use Standard Drinks/Week Comments Yes 30 [...] Orientation Straight 02/13/2022 10 :16 AM EDT Last Filed Vital Signs Vital Sign Reading Time Taken Comments Blood Pressure 137/78 08/19/2024 11:11 AM EDT Pulse 60 08/19/2024 11:11 AM EDT Temperature 36.6 ??C (97.9 ??F) 08/19/2024 11:11 AM E DT Respiratory Rate 15 08/19/2024 11:11 AM EDT Oxygen Saturation 98% 08/19/2024 11:11 AM EDT Inhaled Oxygen Concentration - - Weight 77.1 kg (170 lb) 08/19/2024 11:11 AM EDT Height 172.7 cm (5' 8 ) 08/19/2024 11:11 AM EDT Body Mass Index 25.85 08/19/2024 11:11 AM EDT Plan of Treatment Health Maintenance Due Date Last Done Comments CT Colonography 1952 FIT 1952 Sigmoidoscopy 1950 RSV Patients and Patients Aged 60 years or older (1 - Risk 60-74 years 1-dose series) 2012 FOBT 10/10/2023 10/09/2022, 10/09/2022 COVID-19 Vaccine ( - season) 2023 03/03/2021, 07/12/2020 Influenza Vaccine (#1) 2023 Eye Exam 09/13/2024 09/13/2022 Diabetes: Hemoglobin A1C 10/13/2024 024, 08/24/2023, 02/19/2023, Additional history exists Lipid Panel 11/19/2024 11/20/2023, 09/15, 07/25/2021, Additional history exists Alcohol/Substance Use Screening 12/03/2024 12/04/2023 SDOH Screening 12/03/2024 12/04/2023 Depression Screening 08/19/2025 08/19/2024, 08/20/19 Diabetes: Foot Exam 08/19/2025 08/19/2024, 08/19/2024, 08/19/2024, Additional history exists Tobacco Screening 08/19/2025 08/19/2024 FIT DNA/Cologuard 10/09/2025 10/09/2022 DTaP/Tdap/Td Vaccines (2 - Td or Tdap) 01/05/2026 01/06/2016 Pneumococcal Vaccine: 50+ Years (3 of 3 - PCV20 or PCV21) 07/05/2026 07/05/2021, 03/22/2016 Colonoscopy 06/28/2027 06/27/2017 Colorectal Cancer Screening 06/28/2027 Hepatitis C Screening Completed 07/25/2021 Zoster Vaccines Completed 09/27/2021, 07/25/2021 HIB Vaccines Aged Out No longer eligi ble based on patient's age to complete this topic HPV Vaccines Aged Out No longer eligi ble based on patient's age to complete this topic Hepatitis A Vaccines Aged Out No long er eligible based on patient's age to complete this topic Hepatitis B Vaccines Aged Out No long er eligible based on patient's age to complete this topic IPV Vaccines Aged Out No longer eligi ble based on patient's age to complete this topic Meningococcal Vaccine Aged Out No mayte james eligible based on patient's age to complete this topic RSV under 20 months Aged Out No longe r eligible based on patient's age to complete this topic Rotavirus Vaccines Aged Out No longer eligible based on patient's age to complete this topic Procedures Procedure Name Priority Date/Time Associated Diagnosis Comments POCT GLUCOSE Routine 08/19/2024 11:13 AM EDT Type 2 diabetes mellitus without complication, without long-term current use of insulin (CMS/HCC) POCT GLYCATED HEMOGLOBIN, TOTAL Routine 04/15/2024 11:26 AM EST Type 2 diabetes mellitus without complication, without long-term current use of insulin (CMS/HCC) LIPID PANEL, STANDARD Routine 11/20/2023 9:35 AM EDT Type 2 diabetes mellitus without complication, without long-term current use of insulin (CMS/HCC) Systolic dysfunction without heart failure Former smoker IFOBT Routine 10/09/2022 9:24 AM EDT FIT DNA/COLOGUARD CANCER SCREENING Routine 10/09/2022 ZZZ HISTORICAL HEPATITIS C AB W/REFL TO HCV RNA, QN, PCR Routine 07/25/2021 8:08 AM EDT COLONOSCOPY Routine 06/27/2017 12:10 PM EDT from Last 3 Months or Most Recently Relevant to Health Maintenance Results * POCT Glucose (08/19/2024 11:13 AM EDT) Glucose Blood, POC 77 60 - 200 mg/dL QC Media Lot # [id number] Lot# Expiration Date [id number] Blood Capillary blood specimen / Unknown 08/19/2024 11:13 AM EDT us Galo Name MD POINT OF CARE TEST ENTER/EDIT OR DERABLES Final Result * (ABNORMAL) POCT HGB A1C (04/15/2024 11:26 AM EST) Hemoglobin A1C 6.5(A) 4.0 - 6.0 % QC Media Lot # [id number] Lot# Expiration Date [id number] Blood 04/15/2024 11:2 6 AM EST us Galo Stacy MD POINT OF CARE TEST ENTER/EDIT OR DERABLES Final Result * (ABNORMAL) Lipid Panel, Standard (11/20/2023 9:35 AM EDT) Triglycerides 196(H) <150 mg/dL [facility] Comment:Desirable Triglyceri de: less than 150 mg/dLBorderline High Triglyceride 150-199 mg/dLHigh Triglyceride: 200-499 mg/dLVery High Triglyceride: greater than or equal to 5OO mg/dL Cholesterol 172 <200 mg/dL [facility] Comment:Desirable Cholestero l: less than 200 mg/dLBorderline High Cholesterol: 200-239 mg/dLHigh Cholesterol: greater than 239 mg/dL LDL Cholesterol Calculated 67 <100 mg/dL [facility] Comment:Desirable LDL: less than 100 mg/dLNear Optimal/Above Optimal LDL: 110- 129 mg/dLBorderline High LDL: 130-159 mg/dLHigh LDL: 160-189 mg/dLVery High LDL: greater than or equal to 190 mg/dL HDL Cholesterol 66 >40 mg/dL [facility] Comment:Desirable HDL: great er than 40 mg/dL Note: This HDL assay may give artificially low results in patients with liver disease. Blood Venous blood specimen / Unknown 11/20/2023 9:35 AM EDT 11/20/2023 11:14 AM EDT us Galo Stacy MD LAB BLOOD ORDERABLES Final Resul t [facility] [address] [place] [phone] * gFOBT (10/09/2022 9:24 AM EDT) Pathologist [facility] Fecal Occult Blood 1 Negative Fecal Occult Blood 2 Negative Fecal Occult Blood 3 Negative 10/09/2022 9:24 AM EDT us Galo Stacy MD POINT OF CARE TEST ENTER/EDIT OR DERABLES Final Result * FIT DNA/Cologuard Cancer Screening (10/09/2022) Pathologist [facility] Cologuard Cancer Screen Negative Stool us Galo Stacy MD HEALTH MAINTENANCE Final Result * HEPATITIS C AB W/REFL TO HCV RNA, QN, PCR (07/25/2021 8:08 AM EDT) Pathologist [facility] HEPATITIS C ANTIBODY NON-REACT [place] NON-REACT [place] [facility] INDEX 0.07 <1.00 [facility] Comment: ?? HCV antibody was non-reactive. There is no laboratory ?? evidence of HCV infection. ?? In most cases, no further action is required. However, if recent HCV exposure is suspected, a test for HCV RNA (test code 76619) is suggested. ?? For additional information please refer to http://education.SDI/faq/PJH82i2 (This link is being provided for informational/ educational purposes only.) ?? 07/25/2021 8:08 AM EDT us Galo Stacy MD HISTORICAL/NON ORDERABLE LABS Fi nal Result [facility] [address] * Colonoscopy (06/27/2017 12:10 PM EDT) Pathologist [facility] Colonoscopy Normal Normal Narrative Katelyn Ely - 06/27/2017 12:10 PM EDT Recommended 10 years follow up Historical Provider HEALTH MAINTENANCE Final Result from Last 3 Months or Most Recently Relevant to Health Maintenance Insurance [facility] < [address] [place] [id number] Care Teams Dock Associate Relationship Specialty Start Date End Date Name, MD Galo [address] [place] [phone] PCP - General Family Medicine 07/14/15
--- OUTSIDE RECORDS SUMMARY | 2024-08-22 08:47 | XMS_ITS | Encounter Summary ---
Author Organization [employer] Address [address] [facility] [address] [place] [address] Care Team Providers Care Insurance Claims Assistant Name Role Phone Name, Galo RIVAS Primary Care Provider [phone] Encounter Details Date Type Department Care Team (Late st Contact Info) Description 05/02/2023 Abstract [facility] [address] [place], [place] [phone] Name, MD Galo [address] [place], [place] [phone] Social History Tobacco Use Types Packs/Day Years Used Date Smoking Tobacco: Never Smokeless Tobacco: Never Alcohol Use Standard Drinks/Week Comments Yes 14 (1 standard drink = 0.6 oz pu re alcohol) Housing Stability Answer Date Recorded What is your housing situation today? I have alisson reynolds 02/11/[address] you li ve. Do you have problems with any of the following? None of the above 02/11/2023 Food Insecurity Answer Date Recorded Within the past 12 months, y ou worried that your food would run out before you got money to buy more: Never True 02/11/2023 Within the past 12 months,th e food you bought just didn't last and you didn't have enough money to get more: Never True Transportation Answer Date Recorded In the past 12 months, has l ack of transportation kept you from medical appts, meetings, work or from getting things needed for daily living? No 02/11/2023 Utilities Answer Date Recorded In the past 12 months, has t he electric, gas, oil or water company threatened to shut off services in your home? No 02/11/2023 Depression Answer Date Recorded Patient Health Questionnaire-2 [...] on filedocumented in this encounter Care Teams Insurance Claims Assistant Relationship Specialty Start Date End Date Name, MD Galo [address] [place] [phone] PCP - General Family Medicine 07/14/15 documented as of this encounter
--- OUTSIDE RECORDS SUMMARY | 2024-08-22 08:47 | XMS_ITS | Encounter Summary ---
Author Organization [employer] Address [address] [facility] [address] [place] [address] Care Team Providers Care Hydrochloric Area Supervisor Name Role Phone Name, Galo RIVAS Primary Care Provider [phone] Reason for Visit * Reason Comments Follow-up Encounter Details Date Type Department Care Team ([facility] st Contact Info) Description 08/19/2024 11:15 AM EDT Office Visit [facility] [address] [place], [place] [id number] Name, MD Galo [address] [place] [address] Type 2 diabetes mellitus without complication, without long-term current use of insulin (CMS/HCC) (Primary Dx); Stage 3a chronic kidney disease (CMS/HCC); Coronary artery disease involving otoe-[place]ou[place] coronary artery of o[place] heart without angina pectoris; Ischemic cardiomyopathy; Ascending aorta dilatation (CMS/HCC) Social History Tobacco Use Types Packs/Day Years [...] AM EDT documented as of this encounter Last Filed Vital Signs Vital Sign Reading [...] Mass Index 25.85 08/19/2024 11:11 AM EDT documented in this encounter Progress Notes * Galo Stacy, - 08/19/2024 11:15 AM EDT Subjective Patient ID: Guicho Velasquez is a 73 y.o. male who presents for Follow-up. Patient comes for a follow-up visit and he is feeling very well. He is using all his medications asprescribed. He has not smoked cigarettes in 2 years. He is not drinking alcohol. The patient is walking several times a week without any chest pains or shortness of breath. 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 His follow-up with cardiology is now once a year. He is echocardiogram in June showed normal left ventricular contraction with ejection fraction of 45 to 50%, mild calcification of aortic valve, dilated aortic root and ascending aorta measuring 4.4 and 4 cm respectively. No changes compared to echocardiogram done last year. Review of Systems Constitutional: Negative for chills, fatigue and fever. HENT: Negative for sore throat. Respiratory: Negative for cough, chest tightness and shortness of breath. Cardiovascular: Negative for chest pain, palpitations and leg swelling. Gastrointestinal: Negative for abdominal pain and blood in stool. Visit Vitals BP 137/78 (BP Location: Left arm, Patient Position: Sitting, BP Cuff Size: Adult) Pulse 60 Temp 97.9 ??F (36.6 ??C) (Oral) Resp 15 Ht 5' 8 (1.727 m) Wt 170 lb (77.1 kg) SpO2 98% BMI 25.85 kg/m?? Smoking Status Former BSA 1.92 m?? Objective Physical Exam Constitutional: Appearance: Normal appearance. Cardiovascular: Rate and Rhythm: Normal rate and regular rhythm. Pulses: Dorsalis pedis pulses are 2+ on the right side and 2+ on the left side. Posterior tibial pulses are 2+ on the right side and 2+ on the left side. Heart sounds: No murmur heard. Pulmonary: Effort: Pulmonary effort is normal. No respiratory distress. Breath sounds: No wheezing, rhonchi or rales. Abdominal: Palpations: Abdomen is soft. Tenderness: There is no abdominal tenderness. Musculoskeletal: Right lower leg: No edema. Left lower leg: No edema. Right foot: Normal range of motion. Left foot: Normal range of motion. Feet: Right foot: Protective Sensation: 5 sites tested. 5 sites sensed. Skin integrity: Skin integrity normal. Toenail Condition: Right toenails are normal. Left foot: Protective Sensation: 5 sites tested. 5 sites sensed. Skin integrity: Skin integrity normal. Toenail Condition: Left toenails are normal. Neurological: Mental Status: He is alert. Lab Results Component Value Date HGBA1C 6.5 (A) 04/15/2024 HGBA1C 6.6 (A) 08/24/2023 HGBA1C 6.4 (A) 02/19/2023 HGBA1C 6.4 (A) 07/24/2022 HGBA1C 6.0 (H) 12/01/2020 HGBA1C 6.7 (H) 07/16/2020 Assessment/Plan Diagnoses and all orders for this visit: Type 2 diabetes mellitus without complication, without long-term current use of insulin (CMS/[facility]) Comments: Continue metformin and Jardiance at the same dose Avoid sweets Walk daily Check the fasting blood work listed below Orders: - POCT Glucose - CBC auto differential; Future - Comprehensive Metabolic Panel; Future - Lipid Panel, Standard; Future - Albumin, Random Urine W/Creatinine; Future Stage 3a chronic kidney disease (CMS/HCC) Comments: Continue current medications. Avoid NSAIDs. Recheck fasting blood work. Orders: - CBC auto differential; Future - Comprehensive Metabolic Panel; Future - Lipid Panel, Standard; Future - Albumin, Random Urine W/Creatinine; Future Coronary artery disease involving otoe-[place]ou[place] coronary artery of o[place] heart without angina pectoris Comments: Asymptomatic. Continue current medications. Keep walking. Continue to stay away from tobacco. Orders: - CBC auto differential; Future - Comprehensive Metabolic Panel; Future - Lipid Panel, Standard; Future - Albumin, Random Urine W/Creatinine; Future Ischemic cardiomyopathy Comments: Continue current cardioprotective regimen. EF has normalized since 2021. Orders: - CBC auto differential; Future - Comprehensive Metabolic Panel; Future - Lipid Panel, Standard; Future - Albumin, Random Urine W/Creatinine; Future Ascending aorta dilatation (CMS/HCC) Comments: Continue current medications. Follow-up with cardio once a year for repeat echo. Other orders - mometasone (Elocon) 0.1 % ointment; Apply topically Once per day. documented in this encounter Plan of Treatment Scheduled Orders Name Type Priority Associated Diagnoses Orde r Schedule CBC auto differential Lab Routine Type 2 diabetes mellitus without complication, without long-term current use of insulin ([facility]/HCC) Stage 3a chronic kidney disease (CMS/HCC) Coronary artery disease involving otoe-[place]ouria coronary artery of o[place] heart without angina pectoris Ischemic cardiomyopathy Expected: 08/19/2024 (Approximate), Expires: 08/19/2025 Comprehensive Metabolic Panel Lab Routine Type 2 diabetes mellitus without complication, without long-term current use of insulin ([facility]) Stage 3a chronic kidney disease ([facility]/HCC) Coronary artery disease involving otoe-[place]ou[place] coronary artery of o[place] heart without angina pectoris Ischemic cardiomyopathy Expected: 08/19/2024 (Approximate), Expires: 08/19/2025 Lipid Panel, Standard Lab Routine Type 2 diabetes mellitus without complication, without long-term current use of insulin ([facility]) Stage 3a chronic kidney disease ([facility]/HCC) Coronary artery disease involving otoe-missouria coronary artery of otoe-[place]ou[place] heart without angina pectoris Ischemic cardiomyopathy Expected: 08/19/2024 (Approximate), Expires: 08/19/2025 Albumin, Random Urine W/Creatinine Lab Routine Type 2 diabetes mellitus without complication, without long-term current use of insulin ([facility]) Stage 3a chronic kidney disease ([facility]) Coronary artery disease involving otoe-missouria coronary artery of o[place]ou[place] heart without angina pectoris Ischemic cardiomyopathy Expected: 08/19/2024 (Approximate), Expires: 08/19/2025 documented as of this encounter Procedures Procedure Name Priority Date/Time Associated Diagnosis Comments POCT GLUCOSE Routine 08/19/2024 11:13 AM EDT Type 2 diabetes mellitus without complication, without long-term current use of insulin ([facility]) documented in this encounter Results * POCT Glucose (08/19/2024 11:13 AM EDT) Glucose Blood, POC 77 60 - 200 mg/dL QC Media Lot # [id number] Lot# Expiration Date [id number] Blood Capillary blood specimen / Unknown 08/19/2024 11:13 AM EDT us Galo Stacy MD POINT OF CARE TEST ENTER/EDIT OR DERABLES Final Result documented in this encounter Visit Diagnoses Diagnosis Type 2 diabetes mellitus without complication, without long-term current use of insulin ([facility])- Primary Stage 3a chronic kidney disease ([facility]/HCC) Coronary artery disease involving otoe-[place]ouria coronary artery of otoe-[place]ou[place] heart without angina pectoris Ischemic cardiomyopathy Other specified forms of chronic ischemic heart disease Ascending aorta dilatation (CMS/HCC) Thoracic aneurysm without mention of rupture documented in this encounter Additional Health Concerns Assessment Noted Time PHQ-9 Depression Total Score: 3 08/20/19 25 11:13 AM EDT documented as of this encounter Care Teams Hydrochloric Area Supervisor Relationship Specialty Start Date End Date Name, MD Galo [address] [place] [address] PCP - General Family Medicine 07/14/15 documented as of this encounter
--- OUTSIDE RECORDS SUMMARY | 2024-08-22 08:47 | XMS_ITS | Encounter Summary ---
Author Organization [employer] Address [address] [facility] [address] [place] [address] Care Team Providers Care Concrete Building Assembler Name Role Phone Name, Galo RIVAS Primary Care Provider [phone] Encounter Details Date Type Department Care Team ([facility] st Contact Info) Description 04/28/2022 Orders Only [facility]S [address] [place] [address] Eleanor Arredondo LPN Social History Tobacco Use Types Packs/Day Years Used Date Smoking Tobacco: Never Assessed Sex and Gender Information Value Date Recorded Sex Assigned at Male 02/13/2022 10:16 AM EDT Legal Sex Male 10:16 AM EDT Gender Identity Male 02/13/2022 10:16 AM EDT Sexual Orientation Straight 02/13/2022 10 :16 AM EDT documented as of this encounter Plan of Treatment Not on file documented as of this encounter Visit Diagnoses Not on filedocumented in this encounter Care Teams Concrete Building Assembler Relationship Specialty Start Date End Date Name, MD Galo [address] [place] [id number] PCP - General Family Medicine 07/14/15 documented as of this encounter
--- OUTSIDE RECORDS SUMMARY | 2024-08-22 08:47 | XMS_ITS | Encounter Summary ---
Author Organization [employer] Address [address] [facility] [address] [place] [address] Care Team Providers Care Lead Accountant Name Role Phone Name, Galo RIVAS Primary Care Provider [phone] Encounter Details Date Type Department Care Team ([facility] st Contact Info) Description 03/12/2023 Orders Only [facility] MED [facility] PEDS [address] [place] [address] Oksana Connors LPN Social History Tobacco Use Types Packs/Day Years Used Date Smoking Tobacco: Never Smokeless Tobacco: Never Alcohol Use Standard Drinks/Week Comments Yes 14 (1 standard drink = 0.6 oz pu re alcohol) Housing Stability Answer Date Recorded What is your housing situation today? I have [facility] 02/11/[address] you [...] on filedocumented in this encounter Care Teams Lead Accountant Relationship Specialty Start Date End Date Name, MD Galo [address] [place] [address] PCP - General Family Medicine 07/14/15 documented as of this encounter
[2024-08-22 11:07] LABS: MANUAL DIFF FLAG NO
[2024-08-22 11:16] LABS: Basophils Percent Auto 0.3 % (0-2); Eosinophils Absolute Auto 0.1 X10*3/uL (0.0-0.4); Hematocrit 44.3 % (42.0-52.0); Hemoglobin 14.6 g/dl (14.0-18.0); Imm Gran Abs Auto 0.01 X10*3/uL (0.00-0.03); Imm Gran Pct Auto 0.2 % (0.0-0.4); Lymphocytes Absolute Auto 1.9 X10*3/uL (1.2-4.9); Lymphocytes Percent Auto 32.4 % (20-40); Mean Corpuscular Hemoglobin 29.4 pg (27.0-33.0); Mean Corpuscular Volume 89.1 fL (80.0-98.0); Mean Platelet Volume 10.7 fL (9.4-12.4); Monocytes Absolute Auto 0.5 X10*3/uL (0.1-1.2); Monocytes Percent Auto 9.1 % (2-11); Neutrophils Absolute Auto 3.4 x10*3/uL (2.0-8.3); Platelet Count 207 X10*3/uL (160-400); Red Blood Count 4.97 X10*6/uL (4.60-5.80); White Blood Count 5.9 X10*3/uL (4.8-10.8)
[2024-08-22 11:34] LABS: Alanine Aminotransferase 65 U/L (0-40); Alkaline Phosphatase 61 U/L (39-117); Anion Gap 10 (12-20); Aspartate Amino Transferase 47 U/L (5-37); Bilirubin Total 0.8 mg/dL (0.0-1.0); Blood Urea Nitrogen 9 mg/dL (9-16); Calcium 9.5 mg/dL (8.4-10.2); Carbon Dioxide 25 mmol/L (22-29); Chloride 106 mmol/L (96-108); Cholesterol 172 mg/dL (<200); Estimated Glomerular Filt Rate > 60; Glucose Random 118 mg/dL (60-115); HDL Cholesterol 57 mg/dL (>40); LDL Cholesterol Calculated 66 mg/dL (<100); Potassium 3.6 mmol/L (3.3-5.1); Sodium 137 mmol/L (135-145); Triglycerides 247 mg/dL (<150)
[2024-08-22 11:35] LABS: Creatinine Urine 111.74 mg/dL
== END 2024-08-22 08:34 | disposition home or self-care (01) ==
LOC: HO.HHCL 08:33
PROVIDERS: Visit Provider Internal Medicine Geriatric Medicine
DX: E11.9 Type 2 diabetes mellitus without complications (principal); N18.31 Chronic kidney disease, stage 3a; I25.10 Atherosclerotic heart disease of native coronary artery without angina pectoris; I25.5 Ischemic cardiomyopathy
CPT/HCPCS: 36415; 80053; 80061; 82043; 82570; 85025